=== PATIENT | male | born 1995 | race Caucasian/White ===

== ENCOUNTER 2016-12-23 19:10 | Inpatient (IN) | payer OTHER ==
[~2016-12-23] VITALS: Ht 190.5 cm; Wt 75.3 kg
[2016-12-23] VITALS (7 sets, daily range): BP systolic 125–137; BP diastolic 63–91
--- NOTE | ~2016-12-23 | EKG ---
[address] [address] ELECTROCARDIOGRAM REPORT Name: LADI GARCIAS Room #: 240-P ADM IN M.R.#: [id number] Admission: 12/23/16 Attend Phys: Christian Thomas MD Discharge: Date of : [birth year] Report #: [id number] THIS REPORT FOR: //name// [facility] ED Test Date: 2016-12-23 Test Time: 19:34:46 Pat Name: LADI GARCIAS Department: Room: 240 Gender: M Childhood Teacher: ESTUARDO : 1995 Requested By: Sonya Farias Order Number: [id number] MD: Chuy Preston Measurements Intervals [place] Rate: 99 P: 63 MT: 198 QRS: 64 QRSD: 82 T: 31 QT: 340 QTc: 437 Interpretive Statements Sinus rhythm Borderline prolonged MT interval RSR' in V1 or V2, probably normal variant Baseline wander in lead(s) V2,V3 No previous ECG available for comparison Electronically Signed On 12-23-2016 22:12:23 CDT by Chuy Preston [email or web address] <ELECTRONICALLY SIGNED> By: Chuy Preston MD 12/23/16 2212 33 33 Chuy Preston MD /EPI
[~2016-12-23 19:10] MED LIST: KEPPRA 500 MG500 M1 PO; PRILOSEC 20 MG20 MG PO
[2016-12-23 19:42] LABS: ABSOLUTE NEUTROPHILS 5.4 thou/uL (1.4-8.2); BASOPHILS 0.8 % (0.0-2.0); EOSINOPHILS 0.1 % (0.0-3.0); HEMATOCRIT 48.8 % (42.0-52.0); HEMOGLOBIN 16.7 gm/dL (14.0-18.0); LYMPHOCYTES 14.6 % (24.0-44.0); MCH 30.7 pg (26.0-34.0); MCHC 34.3 g/dL (28.0-37.0); MCV 89.5 fL (80.0-100.0); MONOCYTES 8.4 % (1.0-8.0); PLATELET COUNT 153 thou/uL (150-400); POLYS 76.1 % (36.0-66.0); RBC 5.45 mil/uL (4.50-6.00); WBC 7.1 thou/uL (4.0-11.0)
[2016-12-23 19:44] LABS: MANUAL DIFF NO
[2016-12-23 19:54] LABS: CALCIUM 9.5 mg/dL (8.5-10.1); CREATININE 1.1 mg/dL (0.7-1.3); MAGNESIUM 1.5 mg/dL (1.8-2.4); POTASSIUM 3.9 mmol/L (3.5-5.1)
[2016-12-23 22:35] LABS: CALCIUM 8.9 mg/dL (8.5-10.1); CREATININE 0.9 mg/dL (0.7-1.3); POTASSIUM 4.5 mmol/L (3.5-5.1)
[2016-12-23 22:39] LABS: ALBUMIN 3.9 g/dL (3.4-5.0); PHOSPHORUS 2.5 mg/dL (2.5-4.9); TOTAL BILIRUBIN 1.2 mg/dL (<0.1-1.0); TOTAL PROTEIN 7.1 g/dL (6.4-8.2)
[2016-12-23 22:43] LABS: INR 1.1
[2016-12-23 23:20] LABS: FOLIC ACID 6.1 ng/mL (8.6-58.9); TSH 1.928 uIU/mL (0.358-3.740)
[2016-12-24] VITALS (23 sets, daily range): BP systolic 98–11123; BP diastolic 7–93
[2016-12-24 00:46] LABS: URINE BILIRUBIN 1+ (Negative); URINE BLOOD NEGATIVE (Negative); URINE COLOR YELLOW; URINE GLUCOSE-RANDOM* NEGATIVE (Negative); URINE KETONES 2+ (Negative); URINE NITRITE NEGATIVE (Negative); URINE PROTEIN (DIPSTICK) 2+ (Negative)
[2016-12-24 00:51] LABS: ICTOTEST (BILI CONFIRMATORY) Positive (Negative)
[2016-12-24 00:54] LABS: AMP/METHAMP Negative (Negative); BARBITURATES POSITIVE (Negative); BENZODIAZEPINES Negative (Negative); COCAINE Negative (Negative); METHADONE Negative (Negative); OPIATES Negative (Negative); PCP Negative (Negative); THC Negative (Negative)
[2016-12-24 00:57] LABS: BACTERIA 1-9 Few /HPF (None Seen); CRYSTALS None Seen /LPF (None Seen); HYALINE CASTS 0-3 Few /LPF (None Seen); SQUAMOUS None Seen /LPF (0-3); URINE RBC None Seen /HPF (0-2); URINE WBC None Seen /HPF (0-5)
[2016-12-24 02:47] LABS: HEMATOCRIT 41.5 % (42.0-52.0)
[2016-12-24 02:49] LABS: HEMOGLOBIN 14.5 gm/dL (14.0-18.0)
[2016-12-24 03:02] LABS: CALCIUM 8.4 mg/dL (8.5-10.1); CREATININE 0.8 mg/dL (0.7-1.3); MAGNESIUM 2.5 mg/dL (1.8-2.4); PHOSPHORUS 3.5 mg/dL (2.5-4.9)
[2016-12-24 03:05] LABS: POTASSIUM 3.5 mmol/L (3.5-5.1)
[2016-12-24] MEDS ORDERED: LEVETIRACETAM250 MG PO (03:21)
[2016-12-24] MEDS ORDERED: NEURONTIN 400400 M1 PO (03:22)
[2016-12-24] MEDS ORDERED: IBUPROFEN 600600 M1 PO (03:22)
[2016-12-24] MEDS ORDERED: QUETIAPINE FUM100 MG PO (03:23)
[2016-12-24] MEDS ORDERED: TRAZODONE HCL100 MG PO (03:24)
[2016-12-25] VITALS (11 sets, daily range): BP systolic 89–116; BP diastolic 49–89
[2016-12-25 04:40] LABS: HEMOGLOBIN 14.7 gm/dL (14.0-18.0)
[2016-12-25 04:59] LABS: ALBUMIN 3.6 g/dL (3.4-5.0); DIRECT BILIRUBIN 0.2 mg/dL (<0.1-0.3); TOTAL BILIRUBIN 0.9 mg/dL (<0.1-1.0)
[2016-12-26 03:40] VITALS: BP 104/60
[2016-12-26 07:40] VITALS: BP 113/48
[2016-12-26 16:02] VITALS: BP 99/66
[2016-12-26 19:57] VITALS: BP 107/67
[2016-12-27 04:02] LABS: HEMATOCRIT 42.9 % (42.0-52.0); HEMOGLOBIN 14.7 gm/dL (14.0-18.0); MCH 30.9 pg (26.0-34.0); MCHC 34.1 g/dL (28.0-37.0); MCV 90.6 fL (80.0-100.0); RBC 4.74 mil/uL (4.50-6.00); RDW 13.4 % (10.5-14.5); WBC 5.4 thou/uL (4.0-11.0)
[2016-12-27 04:04] VITALS: BP 103/71
[2016-12-27 04:08] LABS: MANUAL DIFF YES
[2016-12-27 04:10] LABS: CALCIUM 9.2 mg/dL (8.5-10.1); CREATININE 0.9 mg/dL (0.7-1.3); POTASSIUM 3.9 mmol/L (3.5-5.1)
[2016-12-27 08:00] VITALS: BP 116/68
[2016-12-27 10:10] LABS: ABSOLUTE NEUTROPHILS 4.4 thou/uL (1.4-8.2); ANISOCYTOSIS SLIGHT; METAMYELOCYTES 1 %; MYELOCYTES 1 %; TOTAL CELL COUNT 100
[2016-12-27 10:16] LABS: PLATELET COUNT 93 thou/uL (150-400)
[2016-12-27 10:17] LABS: LARGE PLATELETS OCCASIONAL
[2016-12-27 16:00] VITALS: BP 94/55
[2016-12-27 21:10] VITALS: BP 111/59
[2016-12-28 03:50] VITALS: BP 91/55
[2016-12-28 04:27] LABS: ALBUMIN 3.4 g/dL (3.4-5.0); CALCIUM 8.8 mg/dL (8.5-10.1); CREATININE 0.8 mg/dL (0.7-1.3); POTASSIUM 3.8 mmol/L (3.5-5.1); TOTAL BILIRUBIN 0.3 mg/dL (<0.1-1.0); TOTAL PROTEIN 6.6 g/dL (6.4-8.2)
[2016-12-28 04:30] LABS: HEMATOCRIT 41.2 % (42.0-52.0); HEMOGLOBIN 14.2 gm/dL (14.0-18.0); MCH 31.1 pg (26.0-34.0); MCHC 34.4 g/dL (28.0-37.0); MCV 90.5 fL (80.0-100.0); RBC 4.56 mil/uL (4.50-6.00); RDW 13.5 % (10.5-14.5); WBC 5.1 thou/uL (4.0-11.0)
[2016-12-28 04:32] LABS: MANUAL DIFF YES
[2016-12-28 05:47] LABS: ABSOLUTE NEUTROPHILS 1.7 thou/uL (1.4-8.2); LARGE PLATELETS OCCASIONAL; PLATELET COUNT 116 thou/uL (150-400); TOTAL CELL COUNT 100
[2016-12-28 08:57] VITALS: BP 95/58
[2016-12-28 15:53] VITALS: BP 96/60
[2016-12-28 19:32] VITALS: BP 96/61
[2016-12-29 04:17] VITALS: BP 98/60
[2016-12-29 05:08] LABS: HEMOGLOBIN 14.7 gm/dL (14.0-18.0); MCH 31.1 pg (26.0-34.0); MCHC 34.2 g/dL (28.0-37.0); MCV 90.8 fL (80.0-100.0); PLATELET COUNT 148 thou/uL (150-400); RBC 4.74 mil/uL (4.50-6.00); RDW 13.7 % (10.5-14.5); WBC 5.8 thou/uL (4.0-11.0)
[2016-12-29 05:10] LABS: MANUAL DIFF YES
[2016-12-29 05:28] LABS: ALBUMIN 3.6 g/dL (3.4-5.0); CREATININE 0.8 mg/dL (0.7-1.3); POTASSIUM 3.7 mmol/L (3.5-5.1); TOTAL BILIRUBIN 0.3 mg/dL (<0.1-1.0)
[2016-12-29 07:48] LABS: ABSOLUTE NEUTROPHILS 3.1 thou/uL (1.4-8.2); TOTAL CELL COUNT 100
[2016-12-29 07:49] LABS: ANISOCYTOSIS SLIGHT
[2016-12-29 09:00] VITALS: BP 95/54
== END 2016-12-29 13:45 | DRG 896 ==
LOC: ER 19:10 → EROBS 20:47 → ICU 20:47 → 4S 12-25 16:06
PROVIDERS: Emergency Medicine; Family Medicine; Internal Medicine Gastroenterology; Nurse Practitioner Acute Care; Nurse Practitioner Family
PROC: 0DJ08ZZ Inspection of Upper Intestinal Tract, Via Natural or Artificial Opening Endoscopic (ICD-10-PCS; principal; 2016-12-24)
DX: F10.239 Alcohol dependence with withdrawal, unspecified (principal); K22.6 Gastro-esophageal laceration-hemorrhage syndrome; E87.2 Acidosis; F10.229 Alcohol dependence with intoxication, unspecified; Y90.0 Blood alcohol level of less than 20 mg/100 ml; G40.909 Epilepsy, unspecified, not intractable, without status epilepticus; K21.9 Gastro-esophageal reflux disease without esophagitis; M54.9 Dorsalgia, unspecified; E86.0 Dehydration; F17.210 Nicotine dependence, cigarettes, uncomplicated; R00.0 Tachycardia, unspecified; R74.0 Nonspecific elevation of levels of transaminase and lactic acid dehydrogenase [LDH]; E83.42 Hypomagnesemia; Z79.899 Other long term (current) drug therapy; Z81.1 Family history of alcohol abuse and dependence
CPT/HCPCS: 10078; 10100; 10102; 62110; 62900

== ENCOUNTER 2017-02-05 21:23 | Emergency (ER) | payer OTHER ==
[~2017-02-05] VITALS: Ht 182.9 cm; Wt 79.4 kg
[~2017-02-05 21:23] MED LIST changes: +IBUPROFEN 600600 M1 PO; +LEVETIRACETAM250 MG PO; +NEURONTIN 400400 M1 PO; +QUETIAPINE FUM100 MG PO; +TRAZODONE HCL100 MG PO
[2017-02-05 22:06] LABS: ABSOLUTE NEUTROPHILS 8.2 thou/uL (1.4-8.2); BASOPHILS 0.9 % (0.0-2.0); EOSINOPHILS 0.7 % (0.0-3.0); HEMATOCRIT 47.9 % (42.0-52.0); HEMOGLOBIN 16.9 gm/dL (14.0-18.0); LYMPHOCYTES 22.2 % (24.0-44.0); MCH 31.1 pg (26.0-34.0); MCHC 35.2 g/dL (28.0-37.0); MCV 88.4 fL (80.0-100.0); MONOCYTES 5.8 % (1.0-8.0); PLATELET COUNT 373 thou/uL (150-400); POLYS 70.4 % (36.0-66.0); RBC 5.42 mil/uL (4.50-6.00); RDW 13.7 % (10.5-14.5); WBC 11.7 thou/uL (4.0-11.0)
[2017-02-05 22:11] LABS: MANUAL DIFF NO
[2017-02-05 22:13] LABS: CALCIUM 8.6 mg/dL (8.5-10.1); CREATININE 0.9 mg/dL (0.7-1.3); POTASSIUM 3.9 mmol/L (3.5-5.1)
[2017-02-05 22:19] LABS: ALBUMIN 3.8 g/dL (3.4-5.0); TOTAL BILIRUBIN 0.2 mg/dL (<0.1-1.0); TOTAL PROTEIN 8.1 g/dL (6.4-8.2)
== END 2017-02-05 22:50 | disposition home or self-care (01) ==
LOC: ER 21:23
PROVIDERS: Physician Assistant
DX: F10.120 Alcohol abuse with intoxication, uncomplicated (principal); F91.1 Conduct disorder, childhood-onset type; F17.210 Nicotine dependence, cigarettes, uncomplicated; Z86.69 Personal history of other diseases of the nervous system and sense organs; Z98.890 Other specified postprocedural states